=== PATIENT | female | born 1965 | race Caucasian/White ===

== ENCOUNTER → 2016-10-15 | Outpatient (CLI) | payer BC ==
--- NOTE | 2016-10-15 21:26 | DI ---
LUMBAR SPINE SERIES, 10/15/2016 4:17 PM: Clinical History: Midline low back pain with left sciatica. Previous Exam: None at this facility. 3 routine upright views are submitted. The vertebral bodies are of normal height and size. There is d isc space narrowing at L4-5 and L5-S1. The pedicles are normal. The superior and inferior facets of L 5 appears smaller than those at L3 and S1 on the lateral view. Arthritic changes are present at L4-5 and L5-S1 bilaterally. The pedicles and posterior elements are unremarkable. Both SI joints are katie l. Reading: Chronic disc space narrowing at L4-5 and L5-S1 with arthritic changes in the apophyseal joints bilate rally at these levels. The superior and inferior facets at L5 appears smaller than the remaining post erior elements on the lateral projection.
== END ==
LOC: ORTHO 17:02
PROVIDERS: ATTEND Orthopaedic Surgery
DX: M54.42 Lumbago with sciatica, left side (principal); M51.36 Other intervertebral disc degeneration, lumbar region; M48.06 Spinal stenosis, lumbar region
CPT/HCPCS: 72100

== ENCOUNTER → 2016-10-26 | Outpatient (CLI) | payer BC ==
[2016-11-01 10:45] LABS: IGF1 ZSCORE -1.96 SD (())
== END ==
LOC: LAB 16:03
PROVIDERS: ATTEND Emergency Medicine
DX: E66.01 Morbid (severe) obesity due to excess calories (principal)
CPT/HCPCS: 36415; 84305

== ENCOUNTER → 2017-02-11 | Outpatient (CLI) | payer BC ==
--- NOTE | 2017-02-11 11:54 | DI ---
MRI LUMBAR SPINE SCAN WITHOUT IV CONTRAST, 02/11/2017 9:02 AM: Clinical History: Degenerative disc disease of the lumbar spine. Previous Exam: None. Technique: Sagittal and axial T2 weighted; sagittal T1 weighted and T2 STIR; and axial PD. The vertebral bodies are of normal height and size. There is increased signal intensity along the ant eroinferior margin of L4 and the anterosuperior margin of L5 consistent with edema. This would sugges t there is motion occurring at this disc space. All lumbar disc spaces show mild narrowing except at L4-5 which has moderately severe narrowing. Desiccation changes are present from L2-3 through L5-S1. The cord terminates at T12-L1, and the conus medullaris is normal. The disc spaces from T10-11 throug h L1-2 are normal. There are bulging but not herniated discs without canal or neural foraminal stenos is from L2-3 through L5-S1. [id number] degenerative arthritic changes are present in the apophy seal joints bilaterally at L3-4 through L5-S1. Readin. There are bulging but not herniated discs without canal or neural foraminal stenosis from L2-3 th rough L5-S1. 2. There is apparent edema at the endplates at the L4-5 disc space level. This would suggest there i s motion at this level and lateral upright flexion and extension views may confirm this finding. 3. The disc spaces from T10-11 through L1-2
== END ==
LOC: MRI 08:58
PROVIDERS: ATTEND Orthopaedic Surgery
DX: M51.36 Other intervertebral disc degeneration, lumbar region (principal); M47.817 Spondylosis without myelopathy or radiculopathy, lumbosacral region
CPT/HCPCS: 72148